=== PATIENT | male | born 1950 | race Caucasian/White ===

== ENCOUNTER 2016-12-12 15:41 | Emergency (ER) | payer OTHER ==
[~2016-12-12 15:41] MED LIST: ASPIRIN EC325 MG PO; CYCLOBENZAPRINE10 MG PO; ENDOCET 7.5-321 EACH PO; GLUCOPHAGE500 MG PO; ISOSORBIDE MONO30 M1 PO; LOPRESSOR100 MG PO; NEURONTIN600 MG PO; PRAVACHOL40 MG PO; PRILOSEC20 M1 PO; PRINIVIL20 MG PO; VITAMIN B-121000 MCG PO
== END 2016-12-12 17:15 | disposition home or self-care (01) ==
LOC: ER 15:41
DX: J44.1 Chronic obstructive pulmonary disease with (acute) exacerbation (principal); J11.1 Influenza due to unidentified influenza virus with other respiratory manifestations; I10 Essential (primary) hypertension; E11.9 Type 2 diabetes mellitus without complications; I25.10 Atherosclerotic heart disease of native coronary artery without angina pectoris; E66.9 Obesity, unspecified; F17.210 Nicotine dependence, cigarettes, uncomplicated; Z79.84 Long term (current) use of oral hypoglycemic drugs; Z79.82 Long term (current) use of aspirin; Z79.899 Other long term (current) drug therapy; Z88.2 Allergy status to sulfonamides
CPT/HCPCS: 36415; 87502; 96374

== ENCOUNTER 2017-03-07 19:22 | Emergency (ER) | payer OTHER | END 2017-03-07 22:55 | disposition home or self-care (01) | LOC: ER 19:22 | DX: M94.0 Chondrocostal junction syndrome [Tietze] (principal); R09.1 Pleurisy; J20.9 Acute bronchitis, unspecified; I25.10 Atherosclerotic heart disease of native coronary artery without angina pectoris; I10 Essential (primary) hypertension; E11.9 Type 2 diabetes mellitus without complications; J44.9 Chronic obstructive pulmonary disease, unspecified; Z95.5 Presence of coronary angioplasty implant and graft; Z79.82 Long term (current) use of aspirin; Z79.84 Long term (current) use of oral hypoglycemic drugs; Z79.899 Other long term (current) drug therapy; Z88.2 Allergy status to sulfonamides | CPT/HCPCS: 36415; 96374; 96375 ==